=== PATIENT | female | born 1985 | race Caucasian/White ===

== ENCOUNTER 2017-04-28 01:14 | Emergency (ER) | payer SELFPAY ==
[~2017-04-28] VITALS: Ht 152.4 cm; Wt 93.0 kg
[2017-04-28 01:45] LABS: BILIRUBIN,URINE NEGATIVE (NEG); GLUCOSE,URINE NEGATIVE (NEG); NITRITE,URINE NEGATIVE (NEG); PH,URINE 6.5; PROTEIN,URINE 100 mg/dL (NEG-TRACE); UROBILINOGEN,URINE 0.2 mg/dL (0.2 mg/dL)
[2017-04-28] MEDS ORDERED: fentaNYL PF VIAL 100 MCG/2 ML VIAL IV ONE ×2 (01:45→02:30)
[2017-04-28 01:53] LABS: BACTERIA,URINE MODERATE /HPF (0-FEW); RBC,URINE TNTC /HPF (0-2); SQUAMOUS EPITHELIAL CELL,UR FEW /LPF; WBC,URINE 20-40 /HPF (0-4)
[2017-04-28 01:58] LABS: BASO # 0.1 x10^3/uL (0.0-0.2); BASO % 1 % (0-3); EOS % 1 % (0-3); HEMATOCRIT 43.2 % (36.0-47.0); HEMOGLOBIN 14.4 g/dL (12.0-15.5); LYMPH # 5.1 x10^3/uL (1.0-4.8); LYMPH % 32 % (24-48); MEAN CORPUSCULAR HEMOGLOBIN 30 pg (25-35); MEAN CORPUSCULAR HGB CONC 33 g/dL (31-37); MEAN CORPUSCULAR VOLUME 91 fL (79-100); MONO % 6 % (0-9); NEUT % 60 % (31-73); PLATELET COUNT 288 x10^3/uL (140-400); RED BLOOD COUNT 4.77 x10^6/uL (3.50-5.40); RED CELL DISTRIBUTION WIDTH 12.9 % (11.5-14.5); WHITE BLOOD COUNT 15.9 x10^3/uL (4.0-11.0)
[2017-04-28] MEDS ORDERED: IV NORMAL SALINE 1000ML BAG 1,000 ML IV ONE (02:00)
[2017-04-28] MEDS ORDERED: KETOROLAC TROMETHAMINE 30 MG/ML INJ. IV ONE (02:00)
[2017-04-28] MEDS ORDERED: ONDANSETRON PF 4 MG/2 ML VIAL. IV ONE (02:00)
[2017-04-28 02:05] LABS: CALCIUM 8.6 mg/dL (8.5-10.1); CREATININE 0.9 mg/dL (0.6-1.0); GFR 72.6; POTASSIUM 3.6 mmol/L (3.5-5.1)
--- NOTE | 2017-04-28 02:43 | RAD ---
CT abdomen and pelvis without contrast: Reason for examination: Right lower quadrant and flank pain tonight. Helical images were obtained through the abdomen and pelvis with no intravenous or oral contrast administered. Reconstruction was performed in sagittal and coronal plane. Exposure: One or more of the following individualized dose reduction techniques were utilized for this examination: 1. Automated exposure control 2. Adjustment of the mA and/or kV according to patient size 3. Use of iterative reconstruction technique. Lung bases are clear. The heart size is normal with no pericardial effusion evident. No abnormality seen at the liver, spleen, gallbladder, pancreas or adrenal glands. The kidneys show them nonobstructing calculus in the upper pole the left kidney and a nonobstructing calculus at the midpole the right kidney. No hydronephrosis or obstructive uropathy is evident. The appendix is not identified but there are calcifications and surgical clips in the right lower quadrant adjacent to the cecum which may reflecting changes from previous appendectomy. Recommend clinical correlation. The intestinal tract shows no abnormally dilated loops of bowel or thickened bowel bowie. There is no evidence of diverticulosis or diverticulitis. No abnormality seen at the bladder, uterus or ovaries. No adnexal masses or free fluid are seen. IMPRESSION: Nonobstructing calculi in the right and left kidneys. No evidence of hydronephrosis or obstructive uropathy. The appendix is not identified however there is calcification surgical clips in the right upper quadrant which may reflect appendectomy. Recommend clinical correlation. No other focal abnormalities evident in the abdomen or pelvis. Electronically signed by: Shruti Cárdenas MD (04/28/2017 2:40 AM) [facility]
--- NOTE | 2017-04-28 05:02 | ED.ADGEN ---
Past Medical History Past Medical History: Abscess, Depression, Other Additional Past Medical Histor: TIA 2005, protein c-deficiency Past Surgical History: Appendectomy, , Tonsillectomy, Tubal ligation Additional Past Surgical Histo: Adnoids, R knee repair, R club foot surgery x2 , abcess surgery x2 Left leg Alcohol Use: Rarely Drug Use: None Adult General Chief Complaint Chief Complaint: ABDOMINAL PAIN HPI HPI Patient is a 31 year old female presents with acute onset lower abdominal pain , with hematuria, dysuria and burning.. Patient's pain rated moderate to severe. Associated with nausea or episodes of vomiting prior to ED arrival. She also reports right flank pain. Denies history of kidney stones. Fever chills or sweats. No other acute symptoms or complaints. Patient has previous tubal ligation. Review of Systems Review of Systems ROS as per HPI. Current Medications Current Medications Current Medications Medications (Trade) Dose Ordered Sig/Bert Start Time Stop Time Status Last Admin Dose Admin Ceftriaxone Sodium 1 gm/ Sodium Chloride 50 ml @ 100 mls/hr Q24H 04/28/17 04:30 04/28/17 04:10 100 MLS/HR Fentanyl Citrate (Fentanyl 2ml Vial) 50 mcg 1X ONCE 04/28/17 02:30 04/28/17 02:31 DC 04/28/17 04:11 50 MCG Ketorolac Tromethamine (Toradol) 30 mg 1X ONCE 04/28/17 02:00 04/28/17 02:26 DC 04/28/17 01:57 30 MG Ondansetron HCl (Zofran) 4 mg 1X ONCE 04/28/17 02:00 04/28/17 02:26 DC 04/28/17 01:57 4 MG Sodium Chloride 1,000 ml @ 1,000 mls/hr 1X ONCE 04/28/17 02:00 04/28/17 02:59 DC 04/28/17 01:58 1,000 MLS/HR Allergies Allergies Allergies Coded Allergies Type Severity Reaction Last Updated Verified doxycycline Allergy Severe vomitt 11/14/13 Yes morphine Allergy Intermediate Rash 11/14/13 Yes pantoprazole sodium Allergy Mild ITCH 11/14/13 Yes Physical Exam Physical Exam Constitutional: Well developed, well nourished, moderate distress secondary pain. HENT: Normocephalic, atraumatic, bilateral external ears normal, oropharynx moist, no oral exudates, nose normal. [] Eyes: PERRLA, EOMI, conjunctiva normal, no discharge. [] Neck: Normal range of motion, no tenderness, supple, no stridor. [] Cardiovascular:Heart rate regular rhythm, no murmur [] Lungs & Thorax: Bilateral breath sounds clear to auscultation [] Abdomen: Bowel sounds normal, soft, suprapubic pain, tenderness to palpation. Skin: Warm, dry, no erythema, no rash. [] Back: No tenderness, no CVA tenderness. [] Extremities: Right below the knee amputation. Neurologic: Alert and oriented X 3, normal motor function, normal sensory function, no focal deficits noted. [] Psychologic: Affect normal, judgement normal, mood normal. [] Current Patient Data Vital Signs Vital Signs Date Time Temp Pulse Resp B/P (MAP) Pulse Ox O2 Delivery O2 Flow Rate FiO2 04/28/17 04:11 20 99 Room Air 04/28/17 01:20 98.6 107 120/57 (78) 98.6 Lab Values Laboratory Tests Test 04/28/17 00:45 04/28/17 01:25 04/28/17 01:40 POC Urine HCG, Qualitative Hcg negative (Negative) Urine Collection Type Unknown Urine Color Red Urine Clarity Cloudy Urine pH 6.5 Urine Specific [place] 1.010 Urine Protein 100 mg/dL (NEG-TRACE) Urine Glucose (UA) Negative mg/dL (NEG) Urine Ketones (Stick) Negative mg/dL (NEG) Urine Blood Large (NEG) Urine Nitrite Negative (NEG) Urine Bilirubin Negative (NEG) Urine Urobilinogen Dipstick 0.2 mg/dL (0.2 mg/dL) Urine Leukocyte Esterase Moderate (NEG) Urine RBC Tntc /HPF (0-2) Urine WBC 20-40 /HPF (0-4) Urine Squamous Epithelial Cells Few /LPF Urine Bacteria Moderate /HPF (0-FEW) Urine Mucus Slight /LPF White Blood Count 15.9 x10^3/uL (4.0-11.0) H Red Blood Count 4.77 x10^6/uL (3.50-5.40) Hemoglobin 14.4 g/dL (12.0-15.5) Hematocrit 43.2 % (36.0-47.0) Mean Corpuscular Volume 91 fL (79-100) Mean Corpuscular Hemoglobin 30 pg (25-35) Mean Corpuscular Hemoglobin Concent 33 g/dL (31-37) Red Cell Distribution Width 12.9 % (11.5-14.5) Platelet Count 288 x10^3/uL (140-400) Neutrophils (%) (Auto) 60 % (31-73) Lymphocytes (%) (Auto) 32 % (24-48) Monocytes (%) (Auto) 6 % (0-9) Eosinophils (%) (Auto) 1 % (0-3) Basophils (%) (Auto) 1 % (0-3) Neutrophils # (Auto) 9.5 x10^3uL (1.8-7.7) H Lymphocytes # (Auto) 5.1 x10^3/uL (1.0-4.8) H Monocytes # (Auto) 1.0 x10^3/uL (0.0-1.1) Eosinophils # (Auto) 0.2 x10^3/uL (0.0-0.7) Basophils # (Auto) 0.1 x10^3/uL (0.0-0.2) Sodium Level 138 mmol/L (136-145) Potassium Level 3.6 mmol/L (3.5-5.1) Chloride Level 103 mmol/L (98-107) Carbon Dioxide Level 27 mmol/L (21-32) Anion Gap 8 (6-14) Blood Urea Nitrogen 13 mg/dL (7-20) Creatinine 0.9 mg/dL (0.6-1.0) Estimated GFR (Cockcroft-Gault) 72.6 Glucose Level 170 mg/dL (70-99) H Calcium Level 8.6 mg/dL (8.5-10.1) Laboratory Tests 04/28/17 01:40 Laboratory Tests 04/28/17 01:40 EKG EKG [] Radiology/Procedures Radiology/Procedures [CT abdomen pelvis: No acute intra-abdominal process or evidence of active kidney per radiology report.] Course & Med Decision Making Course & Med Decision Making Pertinent Labs and Imaging studies reviewed. (See chart for details) [No evidence of kidney stone. This was consistent with hemorrhagic cystitis. IV fluids, antibiotics, pain medication given prescription improvement in the ED. Treat empirically with PCP follow-up. Return precautions reviewed] Dragon Disclaimer Dragon Disclaimer This electronic medical record was generated, in whole or in part, using a voice recognition dictation system. LUC LIRIANO DO Apr 28, 2017 05:02
[2017-04-29 05:40] VITALS: BP 97/63
== END 2017-04-28 06:10 | disposition home or self-care (01) ==
LOC: ER 01:14
DX: R10.31 Right lower quadrant pain (principal); R30.0 Dysuria; R31.9 Hematuria, unspecified; Z88.1 Allergy status to other antibiotic agents; Z88.5 Allergy status to narcotic agent; Z88.8 Allergy status to other drugs, medicaments and biological substances; Z90.49 Acquired absence of other specified parts of digestive tract; Z86.73 Personal history of transient ischemic attack (TIA), and cerebral infarction without residual deficits
CPT/HCPCS: 36415; 74176; 80048; 81001; 81025; 85027; 87040; 87086; 96361; 96365; 96375; 96376; 99285; J0696; J1885; J2405; J3010; J7030

== ENCOUNTER 2020-10-16 15:20 | Emergency (ER) | payer OTHER ==
[~2020-10-16] VITALS: Ht 152.4 cm; Wt 90.9 kg
[~2020-10-16 15:20] MED LIST: BACI28.34 TP; CEPH-264 PO; SULF1TAB24 PO
[2020-10-16] MEDS ORDERED: ONDANSETRON PF 4 MG/2 ML VIAL. IVP ONE (17:00)
[2020-10-16] MEDS ORDERED: IV NORMAL SALINE 1000ML BAG 1,000 ML IV SCH (17:00)
[2020-10-16] MEDS ORDERED: fentaNYL PF VIAL 100 MCG/2 ML VIAL IVP ONE (17:00)
[2020-10-16] MEDS ORDERED: FAMOTIDINE 20 MG/2 ML VIAL IVP ONE (17:00)
[2020-10-16 17:01] LABS: BILIRUBIN,URINE NEGATIVE (NEG); CLARITY,URINE CLEAR; COLOR,URINE YELLOW; NITRITE,URINE NEGATIVE (NEG); PH,URINE 5.5 (<5.0-8.0); PROTEIN,URINE NEGATIVE (NEG-TRACE); UROBILINOGEN,URINE 0.2 mg/dL (0.2 mg/dL)
[2020-10-16 17:14] LABS: BASO # 0.1 x10^3/uL (0.0-0.2); BASO % 1 % (0-3); EOS # 0.1 x10^3/uL (0.0-0.7); EOS % 1 % (0-3); HEMOGLOBIN 13.6 g/dL (12.0-15.5); LYMPH # 3.9 x10^3/uL (1.0-4.8); LYMPH % 43 % (24-48); MEAN CORPUSCULAR HEMOGLOBIN 30 pg (25-35); MEAN CORPUSCULAR HGB CONC 33 g/dL (31-37); MEAN CORPUSCULAR VOLUME 90 fL (79-100); MONO # 0.6 x10^3/uL (0.0-1.1); MONO % 6 % (0-9); NEUT # 4.5 x10^3/uL (1.8-7.7); NEUT % 49 % (31-73); PLATELET COUNT 297 x10^3/uL (140-400); RED BLOOD COUNT 4.59 x10^6/uL (3.50-5.40); RED CELL DISTRIBUTION WIDTH 12.4 % (11.5-14.5); WHITE BLOOD COUNT 9.2 x10^3/uL (4.0-11.0)
--- NOTE | 2020-10-16 17:14 | PHYS DOC ---
Past Medical History Past Medical History: Abscess, Depression, Other Additional Past Medical Histor: TIA 2004, protein c-deficiency (KEN CARTER [employer]) Past Surgical History: Other Additional Past Surgical Histo: R LOWER LEG AMPUTATION (KEN [employer]TER [employer]) Smoking Status: Current Every Day Smoker Alcohol Use: Rarely Drug Use: None (KEN [employer]TER [employer]) General Adult EDM: Chief Complaint: ABDOMINAL PAIN HPI: HPI: Patient is a 35 year old female who presents with right upper abdominal pain, epigastric and left epigastric sharp shooting pains that are intermittent for the last 8 months. She states that she is nauseous constantly. She states she has been having diarrhea and then going to constipation [id number]. She states that when she has a stool it is white. She states that she has been seen over a year ago and had a CT scan and they could find nothing wrong with her. She states that she has a appointment with a primary care provider Dr Cook on October 27 but she cannot wait that long. She states that she called a GI doctor's office and they cannot get her in until November. Patient rates her pain an 8 out of 10. Patient denies chest pain, shortness of breath, fever, vomiting, dizziness, headache, focal weakness, numbness or tingling. She has a history of diverticulitis. Report from smoking, GERD, TIA, protein C deficiency. Patient states she does take Prilosec daily. (KEN [employer]TER [employer]) Review of Systems: Review of Systems: Constitutional: Denies fever or chills. [] Eyes: Denies change in visual acuity. [] HENT: Denies nasal congestion or sore throat. [] Respiratory: Denies cough or shortness of breath. [] Cardiovascular: Denies chest pain or edema. [] GI: + abdominal pain, +nausea, denies vomiting, bloody stools or + intermittent diarrhea and constipation, + white stools. [] : Denies dysuria. [] Musculoskeletal: Denies back pain or joint pain. [] Integument: Denies rash. [] Neurologic: Denies headache, focal weakness or sensory changes. [] Endocrine: Denies polyuria or polydipsia. [] Lymphatic: Denies swollen glands. [] Psychiatric: Denies depression or anxiety. [] (KEN CARTER APRN) Heart Score: Risk Factors: Risk Factors: DM, Current or recent (<one month) smoker, HTN, HLP, family history of CAD, obesity. Risk Scores: Score 0 - 3: 2.5% MACE over next 6 weeks - Discharge Home Score 4 - 6: 20.3% MACE over next 6 weeks - Admit for Clinical Observation Score 7 - 10: 72.7% MACE over next 6 weeks - Early Invasive Strategies (KEN CARTER APRN) Current Medications: Current Medications Medications (Trade) Dose Ordered Sig/Bert Start Time Stop Time Status Last Admin Dose Admin Famotidine (Pepcid Vial) 20 mg 1X ONCE 10/16/20 17:00 10/16/20 17:01 DC Fentanyl Citrate (Fentanyl 2ml Vial) 50 mcg 1X ONCE 10/16/20 17:00 10/16/20 17:01 DC Ondansetron HCl (Zofran) 4 mg 1X ONCE 10/16/20 17:00 10/16/20 17:01 DC Sodium Chloride 1,000 ml @ 1,000 mls/hr Q1H 10/16/20 17:00 10/16/20 17:59 (KEN CARTER APRN) Allergies: Allergies: Allergies Coded Allergies Type Severity Reaction Last Updated Verified doxycycline Allergy Severe vomitt 11/14/13 Yes morphine Allergy Intermediate Rash 11/14/13 Yes pantoprazole sodium Allergy Mild ITCH 11/14/13 Yes (KEN CARTER APRN) Physical Exam: PE: Constitutional: Well developed, well nourished, no acute distress, non-toxic appearance. [] HENT: Normocephalic, atraumatic, bilateral external ears normal, oropharynx moist, no oral exudates, nose normal. [] Eyes: PERRLA, EOMI, conjunctiva normal, no discharge. [] Neck: Normal range of motion, no tenderness, supple, no stridor. [] Cardiovascular:Heart rate regular rhythm, no murmur [] Lungs & Thorax: Bilateral breath sounds clear to auscultation [] Abdomen: Bowel sounds normal, soft, upper quadrant tenderness, no masses, no pulsatile masses. [] Skin: Warm, dry, no erythema, no rash. [] Back: No tenderness, no CVA tenderness. [] Extremities: No tenderness, no cyanosis, no clubbing, ROM intact, no edema. [] Neurologic: Alert and oriented X 3, normal motor function, normal sensory function, no focal deficits noted. [] Psychologic: Affect normal, judgement normal, mood normal. [] (KEN CARTER APRN) Current Patient Data: Labs: Laboratory Tests Test 10/16/20 16:49 POC Urine HCG, Qualitative Hcg negative (Negative) Vital Signs: Vital Signs Date Time Temp Pulse Resp B/P (MAP) Pulse Ox O2 Delivery O2 Flow Rate FiO2 10/16/20 15:55 98.4 106 20 118/80 (93) 97 Room Air 98.4 (KEN CARTER APRN) EKG: EKG: [] (KEN CARTER APRN) Radiology/Procedures: Radiology/Procedures: [] Impression: [facility] [address] [place] [address] IMAGING REPORT Signed PATIENT: BRYNN ZAMBRANO ACCOUNT: [id number] : 1985 LOCATION: ER AGE: 35 SEX: F EXAM STATUS: REG ER ORD. PHYSICIAN: KEN CARTER APRN REASON: abd pain, nausea PROCEDURE: CT ABD PELV W/ IV CONTRST ONLY CT ABDOMEN+PELVIS W History: Reason: abd pain, nausea / Spl. Instructions: OMNI 300 INJ 75 MLS / History: Technique: After the administration of intravenous contrast, CT imaging was performed of the abdomen and pelvis. Multiplanar images are reviewed. Exposure: One or more of the following individualized dose reduction techniques were utilized for this examination: 1. Automated exposure control 2. Adjustment of the mA and/or kV according to patient size 3. Use of iterative reconstruction technique. Comparison: April 28, 2017 Findings: Lower chest: No consolidation or pleural effusion. Abdomen and pelvis: Hepatic steatosis. The spleen, adrenal glands, pancreas and gallbladder are unremarkable. No biliary ductal dilatation. Patent portal and hepatic veins. Normal appearance the kidneys. No hydronephrosis. No renal calculi. Prior appendectomy. No evidence of bowel obstruction. No pathologic lymphadenopathy. No ascites. Uterus and ovaries are unremarkable. Decompressed urinary bladder. Bones: Grade 1 anterolisthesis L5 on S1 due to chronic bilateral L5 spondylolysis, stable to slightly progressed compared to 2017. Lower lumbar spondylosis most prominent L5-S1. Impression: 1. No acute abdominal or pelvic pathology. 2. Hepatic steatosis. 3. Grade 1 anterolisthesis L5 on S1 due to chronic bilateral L5 spondylolysis. Electronically signed by: Ignacio Aguilera DO (10/16/2020 6:06 PM) [facility] DICTATED and SIGNED BY: IGNACIO AGUILERA DO DATE: 10/16/20 [id number] (KEN CARTER APRN) Course & Med Decision Making: Course & Med Decision Making Pertinent Labs and Imaging studies reviewed. (See chart for details) See HPI. Alert and oriented x4. Speaks in full clear sentences. Ambulatory with a steady gait. Abdomen is soft but tender to right, left and epigastric area. Skin pink warm and dry. Afebrile. [] (KEN CARTER APRN) Dragon Disclaimer: Dragon Disclaimer: This electronic medical record was generated, in whole or in part, using a voice recognition dictation system. (KEN CARTER APRN) Departure Departure Impression: Primary Impression: Pain, abdominal, nonspecific Disposition: 01 DC HOME SELF CARE/HOMELESS Condition: STABLE Referrals: NO PCP (PCP) FRED DA SILVA MD Patient Instructions: Abdominal Pain (Nonspecific) Additional Instructions: Follow up with your primary care provider as you are scheduled. I have referred you to GI. Continue taking all of your medications. Scripts Ondansetron (ONDANSETRON ODT) 4 Mg Tab.rapdis 1 TAB PO PRN Q6-8HRS, #16 TAB Prov: KEN CARTER APRN 10/16/20 Attending Signature Attending Signature I have reviewed the PA/MOBILE PHLEBOTOMIST's note and plan of care. I was available for consultation as needed during the patient's visit in the emergency department. I agree with the clinical impression, plan, and disposition. (KARMA MAYBRERY DO) KEN CARTER APRN Oct 16, 2020 17:14 KARMA MAYBERRY DO Oct 17, 2020 18:56
[2020-10-16 17:18] LABS: BACTERIA,URINE MODERATE /HPF (0-FEW); RBC,URINE 0 /HPF (0-2)
[2020-10-16 17:20] LABS: CALCIUM 9.3 mg/dL (8.5-10.1); CREATININE 0.8 mg/dL (0.6-1.0); GFR 81.2; POTASSIUM 3.6 mmol/L (3.5-5.1)
[2020-10-16 17:26] LABS: ALBUMIN 3.8 g/dL (3.4-5.0); ALBUMIN/GLOBULIN RATIO 1.1 (1.0-1.7); TOTAL BILIRUBIN 0.4 mg/dL (0.2-1.0); TOTAL PROTEIN 7.3 g/dL (6.4-8.2)
[2020-10-16] MEDS ORDERED: CONTRAST GIVEN. MC PRN (17:30)
[2020-10-16] MEDS ORDERED: IOHEXOL 300 MG/ML 100ML VIAL. IV ONE (17:30)
--- NOTE | 2020-10-16 18:08 | RAD ---
CT ABDOMEN+PELVIS W History: Reason: abd pain, nausea / Spl. Instructions: OMNI 300 INJ 75 MLS / History: Technique: After the administration of intravenous contrast, CT imaging was performed of the abdomen and pelvis. Multiplanar images are reviewed. Exposure: One or more of the following individualized dose reduction techniques were utilized for thi s examination: 1. Automated exposure control 2. Adjustment of the mA and/or kV according to patient size 3. Use of iterative reconstruction technique. Comparison: April 28, 2017 Findings: Lower chest: No consolidation or pleural effusion. Abdomen and pelvis: Hepatic steatosis. The spleen, adrenal glands, pancreas and gallbladder are unrem arkable. No biliary ductal dilatation. Patent portal and hepatic veins. Normal appearance the kidneys . No hydronephrosis. No renal calculi. Prior appendectomy. No evidence of bowel obstruction. No pathologic lymphadenopathy. No ascites. Uter us and ovaries are unremarkable. Decompressed urinary bladder. Bones: Grade 1 anterolisthesis L5 on S1 due to chronic bilateral L5 spondylolysis, stable to slightly progressed compared to 2017. Lower lumbar spondylosis most prominent L5-S1. Impression: 1. No acute abdominal or pelvic pathology. 2. Hepatic steatosis. 3. Grade 1 anterolisthesis L5 on S1 due to chronic bilateral L5 spondylolysis. Electronically signed by: Ignacio Aguilera DO (10/16/2020 6:06 PM) [facility]
[2020-10-16] MEDS ORDERED: ONDA4TAB12 PO (18:21)
[2020-10-16] MEDS ORDERED: LIDO:MAALOX 1:1 20 ML SINGLE DOSE. SWSW ONE (19:00)
[2020-10-16 19:31] VITALS: BP 105/60
== END 2020-10-16 19:31 | disposition home or self-care (01) ==
LOC: ER 15:20
DX: R10.11 Right upper quadrant pain (principal); R10.13 Epigastric pain; R19.7 Diarrhea, unspecified; R11.0 Nausea; F17.200 Nicotine dependence, unspecified, uncomplicated; Z88.1 Allergy status to other antibiotic agents; Z88.5 Allergy status to narcotic agent; Z88.8 Allergy status to other drugs, medicaments and biological substances
CPT/HCPCS: 36415; 74177; 80053; 81001; 81025; 83690; 85025; 87086; 96361; 96374; 96375; 99285; J2405; J3010; J3490; J7030; Q9967

== ENCOUNTER → 2020-10-23 | Outpatient (CLI) | payer OTHER ==
[2020-10-16 19:31] VITALS: BP 105/60
[~2020-10-23] MED LIST changes: +OMEP40CA7 PO; +ONDA4TAB12 PO; +PSEU120T9 PO
== END ==
LOC: LAB 13:01
PROVIDERS: ATTEND Internal Medicine Gastroenterology
DX: Z01.812 Encounter for preprocedural laboratory examination (principal); R10.13 Epigastric pain; Z20.828 Contact with and (suspected) exposure to other viral communicable diseases
CPT/HCPCS: U0003

== ENCOUNTER → 2020-10-26 | Day surgery (SDC) | payer OTHER ==
[~2020-10-26] MED LIST changes: +GLYCOPYRROLATE 1 MG/5 ML VIAL. ONE; +IV RINGERS,LACTATED 1000ML 1,000 ML IV SCH; +LIDOCAINE 2% PF 5 ML VIAL. ONE; +OMEP40CA45 PO; -OMEP40CA7 PO; +ONDANSETRON PF 4 MG/2 ML VIAL. ONE; +PROPOFOL 10 MG/ML (20ML) VIAL. IV ONE
--- NOTE | 2020-10-26 14:11 | PDOC4 ---
PROCEDURE Procedure EGD/biopsies, Colonoscopy/biopsies Indication: Dyspepsia, CBH's, weight loss Meds: per anesthesia Findings: E--Healed reflux at 37 cm. G--multiple shallow linear ulcers upper body (from vomiting?). Striped antral erythema, mild. Biopsies antrum and fundus. D--Normal to second portion, biopsies second. APOLINAR--Normal --'Scope advanced to TI. Prep good. Ileum and colon grossly normal. Biopsies cecum/ascending and rectum. One 4mm polyp, distal sigmoid, biopsied off. Small IH's on retroflex. Lc. well. IMP: GERD Shallow ulcers, antral erythema in stomach, biopsies pending. REC: Continue current meds, diet. Await path. F/u in 2 weeks. KARMA BELCHER MD Oct 26, 2020 14:10
[2020-10-26 14:28] VITALS: BP 99/60
== END | disposition home or self-care (01) ==
LOC: SURG 12:17
PROVIDERS: ATTEND Internal Medicine Gastroenterology
DX: R63.4 Abnormal weight loss (principal); R10.13 Epigastric pain; R19.4 Change in bowel habit; K21.00 Gastro-esophageal reflux disease with esophagitis, without bleeding; K25.9 Gastric ulcer, unspecified as acute or chronic, without hemorrhage or perforation; K31.89 Other diseases of stomach and duodenum; K64.0 First degree hemorrhoids; K63.5 Polyp of colon; K63.89 Other specified diseases of intestine; E11.9 Type 2 diabetes mellitus without complications; M19.90 Unspecified osteoarthritis, unspecified site; F41.9 Anxiety disorder, unspecified; F32.9 Major depressive disorder, single episode, unspecified; Z98.51 Tubal ligation status; Z98.890 Other specified postprocedural states; Z79.899 Other long term (current) drug therapy; Z87.891 Personal history of nicotine dependence; Z72.89 Other problems related to lifestyle; Z88.1 Allergy status to other antibiotic agents; Z88.8 Allergy status to other drugs, medicaments and biological substances
CPT/HCPCS: 43239; 45380; J2405; J2704; J3490

== ENCOUNTER 2021-06-26 11:14 | Emergency (ER) | payer OTHER ==
[~2021-06-26] VITALS: Ht 152.4 cm; Wt 85.9 kg
[~2021-06-26 11:14] MED LIST changes: -GLYCOPYRROLATE 1 MG/5 ML VIAL. ONE; -IV RINGERS,LACTATED 1000ML 1,000 ML IV SCH; -LIDOCAINE 2% PF 5 ML VIAL. ONE; -OMEP40CA45 PO; +OMEP40CA7 PO; -ONDANSETRON PF 4 MG/2 ML VIAL. ONE; -PROPOFOL 10 MG/ML (20ML) VIAL. IV ONE
[2021-06-26] MEDS ORDERED: HYDROcodone/APAP 10/325 1 TAB TABLET PO ONE (12:00)
[2021-06-26] MEDS ORDERED: KETOROLAC 60 MG/2 ML VIAL. IM ONE (12:00)
[2021-06-26 12:28] LABS: BILIRUBIN,URINE NEGATIVE (NEG); CLARITY,URINE CLEAR; COLOR,URINE YELLOW; NITRITE,URINE NEGATIVE (NEG); PH,URINE 5.5 (<5.0-8.0); PROTEIN,URINE NEGATIVE (NEG-TRACE); UROBILINOGEN,URINE 0.2 mg/dL (0.2 mg/dL)
--- NOTE | 2021-06-26 12:43 | RAD ---
PQRS Compliance Statement: One or more of the following individualized dose reduction techniques were utilized for this examinat ion: 1. Automated exposure control 2. Adjustment of the mA and/or kV according to patient size 3. Use of iterative reconstruction technique CT LUMBAR SPINE WO 06/26/2021 12:00 PM Indication: Fall. Midline lumbar pain. COMPARISON: None available. TECHNIQUE: Multiple axial CT images of the lumbar spine were obtained without venous contrast. Pichardo l and sagittal reformats are provided. FINDINGS: There is stable grade 1 anterolisthesis of L5 on S1 measuring approximately 4 mm. Chronic bilateral L 5 pars defects are again noted. Vertebral body heights are maintained. No acute fractures identified. Spinous processes are intact. Transverse processes are intact. Lamina and pedicles appear intact. Mi ld facet arthropathy at L4-L5. Moderate facet arthropathy L5-S1. No significant osseous neural forami nal or spinal canal stenosis. Asymmetric sclerosis involving the right sacroiliac joint. No osseous e rosions or marginal osteophytosis. IMPRESSION: No acute fracture of the lumbar spine. Chronic anterolisthesis of L5 on S1 with chronic bilateral L5 pars defects. Asymmetric sclerosis of the right sacroiliac joint appears stable and could reflect sequela of prior sacroiliitis. Electronically signed by: Zoraida Doherty MD (06/26/2021 12:41 PM) [id number]
[2021-06-26 12:48] LABS: BACTERIA,URINE FEW /HPF (0-FEW); RBC,URINE 0 /HPF (0-2); WBC,URINE OCC /HPF (0-4)
--- NOTE | 2021-06-26 13:07 | PHYS DOC ---
Past Medical History Past Medical History: Abscess, Depression, Diverticulosis, P.U.D., Other Additional Past Medical Histor: TIA 2005,UMBILICAL HERNIA,DVT'S R ARM,osteomyelitis Past Surgical History: Appendectomy, , Tubal ligation, Other Additional Past Surgical Histo: R LOWER LEG AMPUTATION,R FOOT,R KNEE Smoking Status: Former Smoker Additional Information: quit smoking 01/2020 Alcohol Use: Occasionally Drug Use: None General Adult EDM: Chief Complaint: BACK PAIN OR INJURY HPI: HPI: Patient is a 35 female presents emergency department complaining of low back pain after slipping and falling on a corn stock while she was at a [employer]. Patient reports this happened approximately 2130 last night. Patient reports waking up with worse pain. Patient denies loss of bowel or loss of bladder, denies urinary retention. Patient denies numbness or tingling down her lower extremities. Patient denies numbness or tingling to her buttocks or periarea. Patient states she took a 5/325 hydrocodone last night without any relief. Patient denies other physical complaints or physical concerns. Review of Systems: Review of Systems: 14 body systems of review of systems have been reviewed. See HPI for pertinent positives and negative responses, otherwise all other systems are negative, nonpertinent or noncontributory. Constitutional: Negative except as outlined in HPI above. Skin: Negative except as outlined in HPI above. Eyes: Negative except as outlined in HPI above. HENT: Negative except as outlined in HPI above. Respiratory: Negative except as outlined in HPI above. Cardiovascular: Negative except as outlined in HPI above. GI: Negative except as outlined in HPI above. : Negative except as outlined in HPI above. Musculoskeletal: Negative except as outlined in HPI above. Integument: Negative except as outlined in HPI above. Neurologic: Negative except as outlined in HPI above. Endocrine: Negative except as outlined in HPI above. Lymphatic: Negative except as outlined in HPI above. Psychiatric: Negative except as outlined in HPI above. Heart Score: C/O Chest Pain: No Risk Factors: Risk Factors: DM, Current or recent (<one month) smoker, HTN, HLP, family history of CAD, obesity. Risk Scores: Score 0 - 3: 2.5% MACE over next 6 weeks - Discharge Home Score 4 - 6: 20.3% MACE over next 6 weeks - Admit for Clinical Observation Score 7 - 10: 72.7% MACE over next 6 weeks - Early Invasive Strategies Current Medications: Current Medications Medications (Trade) Dose Ordered Sig/Bert Start Time Stop Time Status Last Admin Dose Admin Acetaminophen/ Hydrocodone Bitart (Lortab 10/325) 1 tab 1X ONCE 06/26/21 12:00 06/26/21 12:01 DC 06/26/21 12:24 1 TAB Ketorolac Tromethamine (Toradol Im) 60 mg 1X ONCE 06/26/21 12:00 06/26/21 12:01 DC 06/26/21 12:27 60 MG Allergies: Allergies: Allergies Coded Allergies Type Severity Reaction Last Updated Verified clindamycin Allergy Severe MOUTH BLISTERS 06/26/21 Yes doxycycline Allergy Severe vomitt 06/26/21 Yes morphine Allergy Intermediate Rash 06/26/21 Yes pantoprazole sodium Allergy Mild ITCH 06/26/21 Yes Physical Exam: PE: Constitutional: Well developed, well nourished, no acute distress, non-toxic appearance. 35-year-old female in no apparent distress. HENT: Normocephalic, atraumatic. Eyes: Conjunctiva normal, no discharge. Neck: Normal range of motion, no stridor. Cardiovascular: No cyanosis appreciated, distal cap refill less than 2 seconds. Lungs & Thorax: Patient is in no respiratory distress, no audible adventitious lung sounds appreciated. Abdomen: Nontender, no abnormalities noted. Skin: Warm, dry, no erythema, no rash. Back: No left or right-sided CVA tenderness TTP, pain to palpation midline lumbar spinal tenderness, no deformity, no crepitus appreciated, no ecchymosis or bruising or swelling appreciated. Extremities: No tenderness, no cyanosis, no clubbing, ROM intact, no edema. Pa tient ambulates with steady gait. Neurologic: Alert and oriented X 3, normal motor function, normal sensory function, no focal deficits noted. Psychologic: Affect normal, judgement normal, mood normal. Current Patient Data: Labs: Laboratory Tests Test 06/26/21 12:18 06/26/21 12:31 Urine Collection Type Void Urine Color Yellow Urine Clarity Clear Urine pH 5.5 (<5.0-8.0) Urine Specific [place] 1.020 (1.000-1.030) Urine Protein Negative mg/dL (NEG-TRACE) Urine Glucose (UA) Negative mg/dL (NEG) Urine Ketones (Stick) Negative mg/dL (NEG) Urine Blood Negative (NEG) Urine Nitrite Negative (NEG) Urine Bilirubin Negative (NEG) Urine Urobilinogen Dipstick 0.2 mg/dL (0.2 mg/dL) Urine Leukocyte Esterase Negative (NEG) Urine RBC 0 /HPF (0-2) Urine WBC Occ /HPF (0-4) Urine Squamous Epithelial Cells Few /LPF Urine Bacteria Few /HPF (0-FEW) Urine Mucus Slight /LPF POC Urine HCG, Qualitative Hcg negative (Negative) Vital Signs: Vital Signs Date Time Temp Pulse Resp B/P (MAP) Pulse Ox O2 Delivery O2 Flow Rate FiO2 06/26/21 12:24 18 Room Air 06/26/21 11:32 98.5 101 118/80 (93) 97 98.5 EKG: EKG: [] Radiology/Procedures: Radiology/Procedures: PATIENT: BRYNN ZAMBRANO ACCOUNT: [id number] : 1985 LOCATION: ER AGE: 35 SEX: F EXAM STATUS: PRE ER ORD. PHYSICIAN: KARMA CEBALOLS APRN REASON: Fell on corn stock yesterday, midline lumbar pain PROCEDURE: CT LUMBAR SPINE WO CONTRAST PQRS Compliance Statement: One or more of the following individualized dose reduction techniques were utilized for this examination: 1. Automated exposure control 2. Adjustment of the mA and/or kV according to patient size 3. Use of iterative reconstruction technique CT LUMBAR SPINE WO 06/26/2021 12:00 PM Indication: Fall. Midline lumbar pain. COMPARISON: None available. TECHNIQUE: Multiple axial CT images of the lumbar spine were obtained without venous contrast. Coronal and sagittal reformats are provided. FINDINGS: There is stable grade 1 anterolisthesis of L5 on S1 measuring approximately 4 mm. Chronic bilateral L5 pars defects are again noted. Vertebral body heights are maintained. No acute fractures identified. Spinous processes are intact. Transverse processes are intact. Lamina and pedicles appear intact. Mild facet arthropathy at L4-L5. Moderate facet arthropathy L5-S1. No significant osseous neural foraminal or spinal canal stenosis. Asymmetric sclerosis involving the right sacroiliac joint. No osseous erosions or marginal osteophytosis. IMPRESSION: No acute fracture of the lumbar spine. Chronic anterolisthesis of L5 on S1 with chronic bilateral L5 pars defects. Asymmetric sclerosis of the right sacroiliac joint appears stable and could reflect sequela of prior sacroiliitis. Electronically signed by: Zoraida Doherty MD (06/26/2021 12:41 PM) [id number] Course & Med Decision Making: Course & Med Decision Making Pertinent Labs and Imaging studies reviewed. (See chart for details) 35-year-old female, vital signs reviewed, presents emergency department concerning low back pain after a fall onto a corn stock while running through a [employer] last night at 2130. Physical examination none consistent with patient's explanation of events, no bruising, no abrasions, no ecchymosis appreciated, no saddle anesthesia appreciated, will CT lumbar spine to rule out acute process. Will give pain medication in the ED, urinalysis assay with test. The patient's urine is not infected, she is not . CT L-spine unremarkable for acute process however does show chronic disease patterns. Upon reevaluation of the patient, discussed findings with patient, patient reports some pain relief with medications given in the ED. Discussed strict follow-up with primary care physician Dr. Romano for reevaluation of low back pain and ongoing pain management. Patient is amenable to ED discharge planning. Discussed with the patient all findings and diagnostic testing as well as the need to follow-up with their primary care provider for further evaluation and treatment or return to the ED if any new or worsening symptoms. Strict return precautions were also discussed at length, the patient voiced understanding and agreement with the discharge planning. The patient was nontoxic in appearance, in no apparent distress, and hemodynamically stable at the time of disposition. Dragon Disclaimer: Dragon Disclaimer: This electronic medical record was generated, in whole or in part, using a voice recognition dictation system. Departure Departure Impression: Primary Impression: Low back pain Qualified Codes: M54.5 - Low back pain Disposition: HOME / SELF CARE / HOMELESS Condition: GOOD Referrals: LAMONTE COOK MD (PCP) Patient Instructions: Back Pain, Adult, Low Back Sprain with Rehab[facility] Additional Instructions: You were seen today in the emergency department for pain in the low back after a fall onto a corn stock while in the [employer]. You were given pain medication in the emergency department today, a CT scan of your low back did not reveal any acute fractures or injury. However as we discussed there are chronic bony abnormalities within your lumbar spine, as we discussed at length, please follow-up with Dr. Cook for reevaluation and ongoing pain management of your low back pain and review of your lumbar CT scan. I am prescribing you a muscle relaxer and pain medication, please take as directed. Use ice packs to your low back 20 minutes on and 20 minutes off while awake for the next 2 to 3 days. Thank you for visiting our Emergency Department. It was a pleasure taking care of you today in the emergency department and we appreciate you trusting us with your care. If any additional problems come up don't hesitate to return to visit us. Please follow up with your primary care provider so they can plan additional care if needed and know about the problem that you had. If symptoms worsen come back to the Emergency Department. Any concerning symptoms that start such as chest pain, shortness of air, weakness or numbness on one side of the body, running high fevers or any other concerning symptoms return to the ER. EMERGENCY DEPARTMENT GENERAL DISCHARGE INSTRUCTIONS Thank you for coming to [facility] Emergency Department (ED) today and trusting us with you care. We trust that you had a positive experience in our Emergency Department. If you wish to speak to the department management, you may call the Director at [phone]. YOUR FOLLOW UP INSTRUCTIONS ARE FOLLOWS: 1. Do you have a private Doctor? If you do not have a private doctor, please ask for a resource list of physicians or clinics that may be able to assist you with follow up care. 2. The Emergency Physicain has interpreted your x-rays. The X-Ray specialist will also review them. If there is a change in the findings, you will be notified in 48 hours when at all possible. 3. A lab test or culture has been done, your results will be reviewed and you will be notified if you need a change in treatment. ADDITIONAL INSTRUCTIONS AND INFORMATION: 1. Your care today has been supervised by a physician who is specially trained in emergency care. Many problems require more than one evaluation for a complete diagnosis and treatment. We recommend that you schedule your follow up appointment as recommended to ensure complete treatment of you illness or injury. If you are unable to obtain follow up care and continue to have a problem, or if your condition worsens, we recommend that you return to the ED. 2. We are not able to safely determine your condition over the phone nor are we able to give sound medical advice over the phone. For these safety reasons, if you call for medical advice we will ask you to come to the ED for further evaluation. 3. If you have any questions regarding these discharge instructions please call the ED at [phone]. SAFETY INFORMATION: In the interest of safety, wellness, and injury prevention; we encourage you to wear your sealbelt, if you smoke; quite smoking, and we encourage family to use a protective helmet for bicycling and other sporting events that present an increased risk for head injury. IF YOUR SYMPTOMS WORSEN OR NEW SYMPTOMS DEVELOP, OR YOU HAVE CONCERNS ABOUT YOUR CONDITION; OR IF YOUR CONDITION WORSENS WHILE YOU ARE WAITING FOR YOUR FOLLOW UP APPOINTMENT; EITHER CONTACT YOUR PRIMARY CARE DOCTOR, THE PHYSICIAN WHOSE NAME AND NUMBER YOU WERE GIVEN, OR RETURN TO THE ED IMMEDIATELY. Scripts Hydrocodone Bit/Acetaminophen (HYDROCODONE-APAP 10-325 ) 1 Tab Tablet 1 TAB PO PRN Q6HRS PRN for PAIN, #10 TAB 0 Refills Prov: KARMA CEBALLOS APRN 06/26/21 Ibuprofen (IBUPROFEN) 600 Mg Tablet 600 MG PO PRN Q6HRS PRN for INFLAMMATION, #30 TAB 0 Refills Prov: KARMA CEBALLOS APRN 06/26/21 Cyclobenzaprine Hcl (CYCLOBENZAPRINE HCL) 10 Mg Tablet 10 MG PO TID for low back pain for 4 Days, #12 TAB 0 Refills Prov: KARMA CEBALLOS APRN 06/26/21 KARMA CEBALLOS APRN Jun 26, 2021 13:07
[2021-06-26] MEDS ORDERED: HYDR-2769 PO (13:21)
[2021-06-26] MEDS ORDERED: IBUP-1007 PO (13:21)
[2021-06-26] MEDS ORDERED: CYCL10TA2 PO (13:21)
[2021-06-26 13:27] VITALS: BP 104/70
== END 2021-06-26 13:27 | disposition home or self-care (01) ==
LOC: ER 11:14
DX: M54.5 Low back pain (principal); F32.9 Major depressive disorder, single episode, unspecified; Z87.11 Personal history of peptic ulcer disease; Z90.89 Acquired absence of other organs; Z98.890 Other specified postprocedural states; Z98.51 Tubal ligation status; Z88.1 Allergy status to other antibiotic agents; Z88.5 Allergy status to narcotic agent; Z88.8 Allergy status to other drugs, medicaments and biological substances; W01.0XXA Fall on same level from slipping, tripping and stumbling without subsequent striking against object, initial encounter; Y93.89 Activity, other specified; Y92.89 Other specified places as the place of occurrence of the external cause; Y99.8 Other external cause status
CPT/HCPCS: 72131; 81001; 81025; 96372; 99284; J1885